=== PATIENT | male | born 1950 ===

== ENCOUNTER 2016-09-02 07:23 | Day surgery (SDC) | payer MEDICARE ==
[2016-09-02 07:54] VITALS: BMI 24.4
[2016-09-02] MEDS ORDERED: Propofol 10 mg/ml Inj (20 ML) ONE (09:46)
[2016-09-02] MEDS ORDERED: Lactated Ringer's 1,000 ML IV SCH (10:00)
[2016-09-02 16:14] VITALS: BP 145/79; PULSE 73; RESP 16; TEMP 97.3; O2SAT 98
== END 2016-09-02 11:35 | disposition home or self-care (01) ==
LOC: C.ENDO 07:23
PROVIDERS: ATTEND Internal Medicine Gastroenterology
DX: Z12.11 Encounter for screening for malignant neoplasm of colon (principal); D12.4 Benign neoplasm of descending colon; D12.5 Benign neoplasm of sigmoid colon; K64.8 Other hemorrhoids
CPT/HCPCS: 45385; 82948; 88305; J2704; J7120